=== PATIENT | female | born 1945 | race Caucasian/White ===

== ENCOUNTER 2016-12-05 21:23 | Emergency (ER) | payer OTHER ==
[2016-12-05 21:30] VITALS: BP 169/105; PULSE 86; BMI 24.1
--- NOTE | 2016-12-05 21:46 | PDOC ---
History of Present Illness - General Chief Complaint: Eye Problem Stated Complaint: EYE PROBLEM Time Seen by Provider: 12/05/16 21:38 History Source: Patient Exam Limitations: No Limitations - History of Present Illness Initial Comments: 12/05/16 21:39 Patient came in with her with concerns about floating visual changes in her right eye. States onset was a couple days ago but felt like they were progressively worsening. Patient still has good vision with this and intermittent floating. Denies any recent trauma, denies any recent illness or conjunctivitis. No other symptoms, no fevers. 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 12/07/16 12:55 12/07/16 13:02 Timing/Duration: unsure Severity: mild Past History - Travel Traveled outside of the country in the last 30 days: No Close contact w/someone who was outside of country & ill: No - Past Medical History Allergies/Adverse Reactions: Allergies Allergy/AdvReac Type Severity Reaction Status Date / Time No Known Allergies Allergy Verified 12/05/16 21:30 Home Medications: Ambulatory Orders Simvastatin 10 mg PO ASDIR 12/05/16 HTN: Yes Hypercholesterolemia: Yes - Psycho/Social/Smoking Cessation Hx Suicidal Ideation: No Smoking History: Never smoked Review of Systems - Review of Systems Able to Perform ROS?: Yes Is the patient limited Green[place]ic proficient: Yes Constitutional: Yes: See HPI. No: Symptoms Reported, Chills, Fever, Malaise HEENTM: Yes: Symptoms Reported, See HPI, Eye Pain, Blurred Vision, Double Vision (patient states right eye has some mild fogginess with floaters intermittently. Visual acuity is unchanged, has no tearing, no redness or conjunctivae injury). No: Tearing, Recent change in vision Respiratory: Yes: See HPI. No: Symptoms reported ABD/GI: No: Symptoms Reported : No: Symptoms Reported All Other Systems: Reviewed and Negative *Physical Exam - Vital Signs Last Vital Signs Temp Pulse Resp BP Pulse Ox 97 F L 86 18 169/105 97 12/05/16 21:24 12/05/16 21:24 12/05/16 21:24 12/05/16 21:24 12/05/16 21:24 - Physical Exam General Appearance: Yes: Nourished, Appropriately Dressed, Apparent Distress, Mild Distress HEENT: positive: TAMIA (no injected conjunctiva, no fogginess in posterior chamber, no bleeding noted, vessels easily visualized without any obvious vitreous humor color changes.), Normal ENT Inspection, Normal Voice, TMs Normal , Pharynx Normal Neck: negative: Tender Respiratory/Chest: positive: Lungs Clear Extremity: positive: Normal Capillary Refill, Normal Inspection Integumentary: positive: Normal Color, Dry, Warm Neurologic: 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 *DC/Admit/Observation/Transfer Diagnosis at time of Disposition: Dust-like particles present in vitreous humor - Discharge Dispostion Disposition: HOME Condition at time of disposition: Stable Admit: No - Referrals Referrals: Azeem Torrez [Staff Physician] - - Patient Instructions Printed Discharge Instructions: DI for Eye Floaters Additional Instructions: Rest, avoid rubbing eyes Wash hands frequently Followup with ophthalmology or private physician to 2 days for thorough eye evaluation Return to emergency department for visual changes, worsened pain, or other problems
[2016-12-05 21:49] VITALS: TEMP 98.3
== END 2016-12-05 21:50 | disposition home or self-care (01) ==
LOC: JERFT 21:23
DX: H43.391 Other vitreous opacities, right eye (principal); I10 Essential (primary) hypertension; E78.00 Pure hypercholesterolemia, unspecified
CPT/HCPCS: 99281-25

== ENCOUNTER 2017-12-04 12:55 | Emergency (ER) | payer OTHER, BC ==
[2017-12-04 13:00] VITALS: BP 151/88; PULSE 85; TEMP 97.8; BMI 24.3
[2017-12-04] MEDS ORDERED: KETOROLAC TROMETHAMINE 30 MG/1 ML VIAL IM ONE (13:31)
[2017-12-04] MEDS ORDERED: CYCLOBENZAPRINE HCL 10 MG TABLET (FP) PO ONE (13:31)
--- NOTE | 2017-12-04 13:47 | PDOC ---
History of Present Illness - General Chief Complaint: Back Pain Stated Complaint: BACK PAIN Time Seen by Provider: 12/04/17 13:15 History Source: Patient - History of Present Illness Occurred: reports: other Severity: reports: moderate Pain Location: reports: back Past History - Past Medical History Allergies/Adverse Reactions: Allergies Allergy/AdvReac Type Severity Reaction Status Date / Time No Known Allergies Allergy Verified 12/04/17 13:00 Home Medications: Ambulatory Orders Simvastatin 10 mg PO ASDIR 12/05/16 Cyclobenzaprine HCl [Flexeril -] 10 mg PO TID #9 tablet 12/04/17 Naproxen 500 mg PO BID #30 tablet 12/04/17 COPD: No HTN: Yes Hypercholesterolemia: Yes Other medical history: MIGRAINES,cll - Suicide/Smoking/Psychosocial Hx Smoking History: Never smoked Review of Systems - Review of Systems Constitutional: No: Chills, Fever : No: Burning, Dysuria, Flank Pain, Hematuria Musculoskeletal: Yes: Back Pain. No: Muscle Weakness, Neck Pain *Physical Exam - Vital Signs Last Vital Signs Temp Pulse Resp BP Pulse Ox 97.8 F 85 18 151/88 99 12/04/17 12:56 12/04/17 12:56 12/04/17 12:56 12/04/17 12:56 12/04/17 12:56 - Physical Exam General Appearance: Yes: Appropriately Dressed. No: Apparent Distress HEENT: positive: Normal Voice Neck: positive: Supple Respiratory/Chest: negative: Respiratory Distress Gastrointestinal/Abdominal: positive: Soft. negative: Tender Musculoskeletal: negative: CVA Tenderness, Vertebral Tenderness Extremity: positive: Normal Inspection Integumentary: positive: Dry, Warm Neurologic: positive: Fully Oriented, Alert, Normal Mood/Affect ED Treatment Course - RADIOLOGY Radiology Studies Ordered: Category Date Time Status SPINE-LUMBAR SACRAL [RAD] Stat Radiology 12/04/17 13:32 Ordered Medical Decision Making - Medical Decision Making 12/04/17 13:38 72 yo F, h/o CLL, no tx to date, s/p lower back surgery many years ago, OA, here w/ lower back pain x 5 days, feels like "spasms" per pt, similar to her usual LBP but more severe and constant this time. No radiation of pain and no LE weakness, saddle anesthesia or b/b incontinence. No dysuria, hematuria, n/v/f /c. No trauma. Took 1 oxycodone tab that she had at home x 10 years! States meds did improve pain See exam Acute on chronic LBP No trauma No infectious sxs Exam unremarkable -pain control -XR r/o compression fx -ua -reassess 12/04/17 14:12 UA w/ 2+ LE, no nit. Pt has no dysuria so will hold off on abx and a/w ucx. XR neg for acute pathology. Pt improved w/ meds and stable for dc w/ PMD f/u *DC/Admit/Observation/Transfer Diagnosis at time of Disposition: Low back pain Qualifiers: Chronicity: acute Back pain laterality: bilateral Sciatica presence: without sciatica Qualified Code(s): M54.5 - Low back pain - Discharge Dispostion Disposition: HOME Condition at time of disposition: Improved - Prescriptions Prescriptions: Cyclobenzaprine HCl [Flexeril -] 10 mg PO TID #9 tablet Naproxen 500 mg PO BID #30 tablet - Referrals - Patient Instructions Printed Discharge Instructions: DI for Low Back Pain Additional Instructions: Take main medications as needed and follow up with your PMD - Post Discharge Activity
[2017-12-04] MEDS ORDERED: CYCLOBENZAPRINE HCL 10 MG TABLET (FP) ONE (13:54)
[2017-12-04] MEDS ORDERED: KETOROLAC TROMETHAMINE 30 MG/1 ML VIAL ONE (13:54)
[2017-12-04 14:07] LABS: URINE APPEARANCE CLEAR; URINE BILIRUBIN NEGATIVE (<2.0 mg/dL); URINE COLOR STRAW; URINE GLUCOSE (UA) NEGATIVE (NEGATIVE); URINE KETONE TRACE (NEGATIVE); URINE NITRITE NEGATIVE (NEGATIVE); URINE PROTEIN NEGATIVE (NEGATIVE); URINE UROBILINOGEN NEGATIVE mg/dL (0.2-1.0)
[2017-12-04 14:08] LABS: URINE LEUK ESTERASE 2+ (NEGATIVE)
[2017-12-04 14:10] LABS: EPI CELLS RARE /HPF (FEW); URINE BACTERIA RARE /hpf (NONE SEEN)
== END 2017-12-04 14:18 | disposition home or self-care (01) ==
LOC: JERFT 12:55
PROC: 3E0233Z Introduction of Anti-inflammatory into Muscle, Percutaneous Approach (ICD-10-PCS; principal; 2017-12-04)
DX: M54.5 Low back pain (principal); I10 Essential (primary) hypertension; E78.00 Pure hypercholesterolemia, unspecified; M19.90 Unspecified osteoarthritis, unspecified site
CPT/HCPCS: 72100-TC-FY; 81003; 81015; 87086; 96372; 99281-25